=== PATIENT | female | born 1945 | race Caucasian/White ===

== ENCOUNTER 2017-08-04 13:40 | Inpatient (IN) | payer MEDICARE ==
[~2017-08-04] VITALS: Ht 160 cm; Wt 68.2 kg
[2017-08-04] MEDS ORDERED: BUPR150T11 PO (16:45)
[2017-08-04] MEDS ORDERED: ALLO100T PO (16:45)
[2017-08-04] MEDS ORDERED: CALC600T23 PO (16:45)
[2017-08-04] MEDS ORDERED: HYDR25TA PO ×2 (16:45)
[2017-08-04] MEDS ORDERED: [UNRECOGNIZED DRUG - CODE] PO (16:45)
[2017-08-04] MEDS ORDERED: LEVO100T5 PO (16:45)
[2017-08-04] MEDS ORDERED: CLON1TAB3 PO (16:45)
[2017-08-04] MEDS ORDERED: PRAM0.255 PO (16:45)
[2017-08-04] MEDS ORDERED: TRAM50TA PO (16:45)
[2017-08-04] MEDS ORDERED: CHOL10003 PO (16:45)
[2017-08-04] MEDS ORDERED: POTA10TA5 PO (16:45)
[2017-08-04] MEDS ORDERED: MULT-460 PO (16:45)
[2017-08-04] MEDS ORDERED: ACET325T9 PO (16:45)
[2017-08-04] MEDS ORDERED: MAGNESIUM HYDROXIDE 2,400 MG/30 ML ORAL.SUSP. PO PRN (17:00)
[2017-08-04] MEDS ORDERED: METHYL SALICYLATE/MENTHOL TOPICAL OINTMENT 29GM TUBE. TP PRN (17:00)
[2017-08-04] MEDS ORDERED: MAG HYDROX/AL HYDROX/SIMETH 30 ML ORAL.SUSP PO PRN (17:00)
[2017-08-04 17:31] LABS: BASO % 0 % (0-3); EOS % 1 % (0-3); HEMATOCRIT 28.8 % (36.0-47.0); HEMOGLOBIN 9.7 g/dL (12.0-15.5); LYMPH # 1.2 x10^3/uL (1.0-4.8); LYMPH % 13 % (24-48); MEAN CORPUSCULAR HEMOGLOBIN 29 pg (25-35); MEAN CORPUSCULAR HGB CONC 34 g/dL (31-37); MEAN CORPUSCULAR VOLUME 87 fL (79-100); MONO # 0.8 x10^3/uL (0.0-1.1); MONO % 9 % (0-9); NEUT # 6.8 x10^3uL (1.8-7.7); NEUT % 77 % (31-73); PLATELET COUNT 337 x10^3/uL (140-400); WHITE BLOOD COUNT 8.9 x10^3/uL (4.0-11.0)
[2017-08-04 17:34] VITALS: BP 130/78
[2017-08-04 17:57] LABS: ALBUMIN 3.2 g/dL (3.4-5.0); ALBUMIN/GLOBULIN RATIO 0.8 (1.0-1.7); CALCIUM 8.5 mg/dL (8.5-10.1); CREATININE 0.8 mg/dL (0.6-1.0); GFR 71.1; MAGNESIUM 2.5 mg/dL (1.8-2.4); POTASSIUM 3.5 mmol/L (3.5-5.1); TOTAL BILIRUBIN 0.5 mg/dL (0.2-1.0); TOTAL PROTEIN 7.2 g/dL (6.4-8.2)
--- NOTE | 2017-08-04 18:32 | PDOC ---
Exam Note: Niranjan Note: Please also refer to the separate dictated note~for this date of service dictated separately.~Patient seen individually. Discussed the patient with Nursing staff reviewed the chart.~Reviewed interim history and current functioning. Reviewed vital signs,~Labs/ Radiology~and current medications noted below. Continue current treatment with the changes noted in the dictated addendum note Assessment: Vital Signs: Vital Signs Date Time Temp Pulse Resp B/P (MAP) Pulse Ox O2 Delivery O2 Flow Rate FiO2 08/04/17 17:34 97.8 87 18 130/78 (95) 95 Labs: Laboratory Tests Test 08/04/17 17:10 White Blood Count 8.9 x10^3/uL (4.0-11.0) Red Blood Count 3.30 x10^6/uL (3.50-5.40) L Hemoglobin 9.7 g/dL (12.0-15.5) L Hematocrit 28.8 % (36.0-47.0) L Mean Corpuscular Volume 87 fL (79-100) Mean Corpuscular Hemoglobin 29 pg (25-35) Mean Corpuscular Hemoglobin Concent 34 g/dL (31-37) Red Cell Distribution Width 14.0 % (11.5-14.5) Platelet Count 337 x10^3/uL (140-400) Neutrophils (%) (Auto) 77 % (31-73) H Lymphocytes (%) (Auto) 13 % (24-48) L Monocytes (%) (Auto) 9 % (0-9) Eosinophils (%) (Auto) 1 % (0-3) Basophils (%) (Auto) 0 % (0-3) Neutrophils # (Auto) 6.8 x10^3uL (1.8-7.7) Lymphocytes # (Auto) 1.2 x10^3/uL (1.0-4.8) Monocytes # (Auto) 0.8 x10^3/uL (0.0-1.1) Eosinophils # (Auto) 0.0 x10^3/uL (0.0-0.7) Basophils # (Auto) 0.0 x10^3/uL (0.0-0.2) Sodium Level 139 mmol/L (136-145) Potassium Level 3.5 mmol/L (3.5-5.1) Chloride Level 102 mmol/L (98-107) Carbon Dioxide Level 25 mmol/L (21-32) Anion Gap 12 (6-14) Blood Urea Nitrogen 12 mg/dL (7-20) Creatinine 0.8 mg/dL (0.6-1.0) Estimated GFR (Cockcroft-Gault) 71.1 BUN/Creatinine Ratio 15 (6-20) Glucose Level 118 mg/dL (70-99) H Calcium Level 8.5 mg/dL (8.5-10.1) Magnesium Level 2.5 mg/dL (1.8-2.4) H Total Bilirubin 0.5 mg/dL (0.2-1.0) Aspartate Amino Transferase (AST) 40 U/L (15-37) H Alanine Aminotransferase (ALT) 36 U/L (14-59) Alkaline Phosphatase 61 U/L (46-116) Total Protein 7.2 g/dL (6.4-8.2) Albumin 3.2 g/dL (3.4-5.0) L Albumin/Globulin Ratio 0.8 (1.0-1.7) L Current Medications: Meds: Current Medications Multi-Ingredient Ointment (Analgesic [place]) 1 alissa PRN QID PRN TP MUSCLE PAIN; Start 08/04/17 at 17:00 Al Hydroxide/Mg Hydroxide (Mylanta Plus Xs) 15 ml PRN AFTMEALHC PRN PO DYSPEPSIA; Start 08/04/17 at 17:00 Magnesium Hydroxide (Milk Of Magnesia) 2,400 mg PRN QHS PRN PO CONSTIPATION; Start 08/04/17 at 17:00 Nicotine (Nicoderm Cq 14mg) 1 patch DAILY TD ; Start 08/05/17 at 09:00; Stop at 09:00; Status DC Acetaminophen (Tylenol) 650 mg PRN Q4HRS PRN PO PAIN / TEMP; Start 08/04/17 at 17:00 Allopurinol (Zyloprim) 100 mg DAILY PO ; Start 08/05/17 at 09:00 Bupropion HCl (Wellbutrin Sr) 150 mg BID92 PO ; Start 08/05/17 at 09:00 Vitamin D (Vitamin D3) 2,000 unit DAILY PO ; Start 08/05/17 at 09:00 Clonazepam (KlonoPIN) 1 mg PRN TID PRN PO ANXIETY / AGITATION; Start 08/04/17 at 17:00 Hydroxyzine HCl (Atarax) 25 mg DAILY PO ; Start 08/05/17 at 09:00 Hydroxyzine HCl (Atarax) 25 mg PRN Q8HRS PRN PO ANXIETY; Start 08/04/17 at 17: 00 Levothyroxine Sodium (Synthroid) 100 mcg DAILYAC PO ; Start 08/05/17 at 07:30 Pramipexole Dihydrochloride (miraPEX) 0.25 mg DAILY PO ; Start 08/05/17 at 09:00 Tramadol HCl (Ultram) 50 mg PRN Q4HRS PRN PO PAIN; Start 08/04/17 at 17:00 Calcium Carbonate/ Glycine (Oscal) 1,000 mg DAILY PO ; Start 08/05/17 at 09:00 Non-Formulary Medication (Iron Polysaccharides Complex (Novaferrum 50)) 50 mg DAILY PO ; Start 08/05/17 at 09:00; Stop 08/05/17 at 09:00; Status DC Multivitamins/ Calcium (Thera-M Plus) 1 tab DAILY PO ; Start 08/05/17 at 09:00 Potassium Chloride (Klor-Con) 10 meq TID PO ; Start 08/04/17 at 21:00 Active Scripts Active Reported Tramadol Hcl (Tramadol HCl) 50 Mg Tablet 50 Mg PO PRN Q4HRS PRN Mirapex (Pramipexole Di-Hcl) 0.25 Mg Tablet 0.25 Mg PO DAILY Klor-Con 10 (Potassium Chloride) 10 Meq Tablet.er 10 Meq PO TID Multiple Vitamin (Multivitamin With Minerals) 1 Each Tablet 1 Each PO DAILY Levothyroxine Sodium 100 Mcg Tablet 100 Mcg PO DAILYAC Novaferrum 50 (Iron Polysaccharides Complex) 50 Mg Capsule 50 Mg PO DAILY Hydroxyzine Hcl 25 Mg Tablet 25 Mg PO PRN Q8HRS PRN Hydroxyzine Hcl 25 Mg Tablet 25 Mg PO DAILY Clonazepam 1 Mg Tablet 1 Mg PO PRN TID PRN Vitamin D3 (Cholecalciferol (Vitamin D3)) 1,000 Unit Tablet 2,000 Unit PO DAILY Calcium Carbonate 600 Mg Tablet 1,200 Mg PO DAILY Bupropion Hcl Sr (Bupropion Hcl) 150 Mg Tablet.er 150 Mg PO BID92 Allopurinol 100 Mg Tablet 100 Mg PO DAILY Tylenol (Acetaminophen) 325 Mg Tablet 650 Mg PO PRN Q4HRS PRN I have reviewed the current psychotropics carefully including drug interactions. Risk benefit ratio favors no change other than as noted in my dictated progress note. Diagnosis: Problems: (1) Anxiety disorder (2) Impulse control disorder (3) Major depressive disorder, recurrent episode (4) Psychosis, atypical MCKAY SHEIKH MD Aug 04, 2017 18:32
[2017-08-04] MEDS: clonazePAM 1 MG TABLET PO PRN (18:45)
[2017-08-04] MEDS: PRAMIPEXOLE 0.25 MG TABLET. PO SCH (20:27)
[2017-08-04] MEDS: POTASSIUM CHLORIDE 10 MEQ TABLET.ER. PO SCH (20:27)
--- NOTE | 2017-08-04 20:55 | PDOC ---
Exam Note: Niranjan Note: Please also refer to the separate dictated note~for this date of service dictated separately.~Patient seen individually. Discussed the patient with Nursing staff reviewed the chart.~Reviewed interim history and current functioning. Reviewed vital signs,~Labs/ Radiology~and current medications noted below. Continue current treatment with the changes noted in the dictated addendum note Assessment: Vital Signs: Vital Signs Date Time Temp Pulse Resp B/P (MAP) Pulse Ox O2 Delivery O2 Flow Rate FiO2 08/04/17 17:34 97.8 87 18 130/78 (95) 95 Labs: Laboratory Tests Test 08/04/17 17:10 White Blood Count 8.9 x10^3/uL (4.0-11.0) Red Blood Count 3.30 x10^6/uL (3.50-5.40) L Hemoglobin 9.7 g/dL (12.0-15.5) L Hematocrit 28.8 % (36.0-47.0) L Mean Corpuscular Volume 87 fL (79-100) Mean Corpuscular Hemoglobin 29 pg (25-35) Mean Corpuscular Hemoglobin Concent 34 g/dL (31-37) Red Cell Distribution Width 14.0 % (11.5-14.5) Platelet Count 337 x10^3/uL (140-400) Neutrophils (%) (Auto) 77 % (31-73) H Lymphocytes (%) (Auto) 13 % (24-48) L Monocytes (%) (Auto) 9 % (0-9) Eosinophils (%) (Auto) 1 % (0-3) Basophils (%) (Auto) 0 % (0-3) Neutrophils # (Auto) 6.8 x10^3uL (1.8-7.7) Lymphocytes # (Auto) 1.2 x10^3/uL (1.0-4.8) Monocytes # (Auto) 0.8 x10^3/uL (0.0-1.1) Eosinophils # (Auto) 0.0 x10^3/uL (0.0-0.7) Basophils # (Auto) 0.0 x10^3/uL (0.0-0.2) Sodium Level 139 mmol/L (136-145) Potassium Level 3.5 mmol/L (3.5-5.1) Chloride Level 102 mmol/L (98-107) Carbon Dioxide Level 25 mmol/L (21-32) Anion Gap 12 (6-14) Blood Urea Nitrogen 12 mg/dL (7-20) Creatinine 0.8 mg/dL (0.6-1.0) Estimated GFR (Cockcroft-Gault) 71.1 BUN/Creatinine Ratio 15 (6-20) Glucose Level 118 mg/dL (70-99) H Calcium Level 8.5 mg/dL (8.5-10.1) Magnesium Level 2.5 mg/dL (1.8-2.4) H Total Bilirubin 0.5 mg/dL (0.2-1.0) Aspartate Amino Transferase (AST) 40 U/L (15-37) H Alanine Aminotransferase (ALT) 36 U/L (14-59) Alkaline Phosphatase 61 U/L (46-116) Total Protein 7.2 g/dL (6.4-8.2) Albumin 3.2 g/dL (3.4-5.0) L Albumin/Globulin Ratio 0.8 (1.0-1.7) L Current Medications: Meds: Current Medications Multi-Ingredient Ointment (Analgesic [place]) 1 alissa PRN QID PRN TP MUSCLE PAIN; Start 08/04/17 at 17:00 Al Hydroxide/Mg Hydroxide (Mylanta Plus Xs) 15 ml PRN AFTMEALHC PRN PO DYSPEPSIA; Start 08/04/17 at 17:00 Magnesium Hydroxide (Milk Of Magnesia) 2,400 mg PRN QHS PRN PO CONSTIPATION; Start 08/04/17 at 17:00 Nicotine (Nicoderm Cq 14mg) 1 patch DAILY TD ; Start 08/05/17 at 09:00; Stop at 09:00; Status DC Acetaminophen (Tylenol) 650 mg PRN Q4HRS PRN PO PAIN / TEMP; Start 08/04/17 at 17:00 Allopurinol (Zyloprim) 100 mg DAILY PO ; Start 08/05/17 at 09:00 Bupropion HCl (Wellbutrin Sr) 150 mg BID92 PO ; Start 08/05/17 at 09:00 Vitamin D (Vitamin D3) 2,000 unit DAILY PO ; Start 08/05/17 at 09:00 Clonazepam (KlonoPIN) 1 mg PRN TID PRN PO ANXIETY / AGITATION Last administered on 08/04/17at 18:45; Start 08/04/17 at 17:00 Hydroxyzine HCl (Atarax) 25 mg DAILY PO ; Start 08/05/17 at 09:00 Hydroxyzine HCl (Atarax) 25 mg PRN Q8HRS PRN PO ANXIETY; Start 08/04/17 at 17: 00 Levothyroxine Sodium (Synthroid) 100 mcg DAILYAC PO ; Start 08/05/17 at 07:30 Pramipexole Dihydrochloride (miraPEX) 0.25 mg DAILY PO ; Start 08/05/17 at 09:00 ; Stop 08/05/17 at 09:00; Status DC Tramadol HCl (Ultram) 50 mg PRN Q4HRS PRN PO PAIN; Start 08/04/17 at 17:00 Calcium Carbonate/ Glycine (Oscal) 1,000 mg DAILY PO ; Start 08/05/17 at 09:00 Non-Formulary Medication (Iron Polysaccharides Complex (Novaferrum 50)) 50 mg DAILY PO ; Start 08/05/17 at 09:00; Stop 08/05/17 at 09:00; Status DC Multivitamins/ Calcium (Thera-M Plus) 1 tab DAILY PO ; Start 08/05/17 at 09:00 Potassium Chloride (Klor-Con) 10 meq TID PO Last administered on 08/04/17at 20: 27; Start 08/04/17 at 21:00 Pramipexole Dihydrochloride (miraPEX) 0.25 mg HS PO Last administered on at 20:27; Start 08/04/17 at 21:00 Active Scripts Active Reported Tramadol Hcl (Tramadol HCl) 50 Mg Tablet 50 Mg PO PRN Q4HRS PRN Mirapex (Pramipexole Di-Hcl) 0.25 Mg Tablet 0.25 Mg PO DAILY Klor-Con 10 (Potassium Chloride) 10 Meq Tablet.er 10 Meq PO TID Multiple Vitamin (Multivitamin With Minerals) 1 Each Tablet 1 Each PO DAILY Levothyroxine Sodium 100 Mcg Tablet 100 Mcg PO DAILYAC Novaferrum 50 (Iron Polysaccharides Complex) 50 Mg Capsule 50 Mg PO DAILY Hydroxyzine Hcl 25 Mg Tablet 25 Mg PO PRN Q8HRS PRN Hydroxyzine Hcl 25 Mg Tablet 25 Mg PO DAILY Clonazepam 1 Mg Tablet 1 Mg PO PRN TID PRN Vitamin D3 (Cholecalciferol (Vitamin D3)) 1,000 Unit Tablet 2,000 Unit PO DAILY Calcium Carbonate 600 Mg Tablet 1,200 Mg PO DAILY Bupropion Hcl Sr (Bupropion Hcl) 150 Mg Tablet.er 150 Mg PO BID92 Allopurinol 100 Mg Tablet 100 Mg PO DAILY Tylenol (Acetaminophen) 325 Mg Tablet 650 Mg PO PRN Q4HRS PRN I have reviewed the current psychotropics carefully including drug interactions. Risk benefit ratio favors no change other than as noted in my dictated progress note. Diagnosis: Problems: (1) Anxiety disorder (2) Impulse control disorder (3) Psychosis, atypical (4) Major depressive disorder, recurrent episode MCKAY SHEIKH MD Aug 04, 2017 20:55
[2017-08-04] MEDS: traMADol 50 MG TABLET PO PRN (21:41)
[2017-08-04] MEDS: ACETAMINOPHEN 325 MG TABLET PO PRN (21:41)
--- NOTE | 2017-08-05 06:19 | EKG ---
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
[2017-08-05 06:30] VITALS: BP 125/73
[2017-08-05] MEDS ORDERED: LEVOTHYROXINE 100 MCG TABLET PO SCH (07:30)
--- NOTE | 2017-08-05 07:44 | EKG ---
[address] [address] Test Date: 2017-08-05 Test Time: 06:10:44 Pat Name: REBEKAH POWERS Department: Room: 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
[2017-08-05 08:08] LABS: T3 TOTAL 92 ng/dL (71-180); THYROXINE 9.6 ug/dL (4.5-12.0)
[2017-08-05] MEDS ORDERED: NICOTINE 14MG PATCH. TD SCH (09:00)
[2017-08-05] MEDS ORDERED: PRAMIPEXOLE 0.25 MG TABLET. PO SCH (09:00)
[2017-08-05] MEDS ORDERED: POLYSACCHARIDE IRON COMPLEX PO SCH (09:00)
--- NOTE | 2017-08-05 09:31 | HP ---
ADMIT DATE: 08/04/2017 This is a late entry and covers elements not covered in my initial note 08/04/2017. The patient was seen individually evening of 08/04/2017. Discussed with nursing staff, reviewed the chart, and I previously discussed with nursing staff on 2 or 3 occasions to gather historical information prompting patient's referral for inpatient psychiatry from [facility] where she was on the medical/surgical floor and stabilized, but continued to be confused, delirious, psychotic, status post back surgery at [facility]. I have been called late at night of 08/03/2017 with initial referral from [facility], but we determined she should stay overnight for further medical stabilization there before we would reassess the next morning which we did and then agreed to her transfer. IDENTIFYING DATA: The patient is a 71-year-old female referred to us from [facility] by Dr. Guerra from [facility] on account of worsening confusion, slurred speech, intermittent hallucinations, seeing ants in the air grabbing at them, confusion, being oriented just to name and date of only. She had been talking to the pillows, crying, attempting to elope from the facility, agitated. She initially presented to the ER at [facility], was delirious, Xanax given, admitted to the medical surgical floor, medically stabilized, nothing found to account for her symptoms and referred for inpatient psychiatric stabilization, coordinated by her adult children, who are her DPOA including Mohit Walls, her son, telephone [phone]. CHIEF COMPLAINT: "I had prolapsed disks in the back and was having leg pain." Dr. Martin did the surgery. "I don't know why my children thought I should come here." HISTORY OF PRESENT ILLNESS: The patient recently had a back surgery at [facility] and following that was returned home. She was undergoing rehabilitation, then appeared to become extremely delirious, psychotic, disorganized and was taken to the ER at [facility] as noted. These symptoms have persisted while there with worsening confusion, nothing medically to account for it resulting in this referral because of behaviors deemed dangerous, out of control, unmanageable at home by her family. No clear history of bipolar disorder, suicidal, or homicidal ideation. PAST PSYCHIATRIC HISTORY: As above, though she does not have any premorbid psychiatric conditions I have been made aware of. No alcohol or drug abuse history. The patient reportedly had an assessment at [facility] by the psychologist, who was told that she was unable to make decisions for herself and DPOA was initiated to help make decisions for her. PAST MEDICAL HISTORY: Status post back surgery 07/31/2017 for T4, history of left knee replacement, gout, depression, hypothyroidism, restless leg syndrome, anxiety. DIET: Regular. ACCU-CHEKS: None. Ambulates up ____. CODE STATUS: Full code. DRUG ALLERGIES: Negative. FAMILY HISTORY: Noncontributory. SOCIAL HISTORY: No alcohol, drug abuse, physical or sexual abuse history is noted. Not known to be a perpetrator. 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 Prior to the back surgery, she was driving on her own, taking care of herself at home, cooking, cleaning according to her. MENTAL STATUS EXAMINATION: The patient was seen individually evening of 08/04/2017. She is oriented to herself and situation, quite anxious, restless, distress from her back pain. At times, she seems quite disoriented, at other times less so. She had midst of the hallucinations, delusions, prompting admission. Denies having them currently as I assessed her. Speech is coherent, abstraction fair, computation impaired, language function intact, attention span short. Mood and affect remain somewhat anxious, labile. LABORATORY DATA: Reviewed. Reaction to hospitalization, the patient reluctantly accepting of this weakness, patient's confusion, psychosis. REVIEW OF SYSTEMS: Positive for back pain, impaired ambulation. No CV, , pulmonary, eye system symptoms on review. IMPRESSION: Delirium, unspecified; history of major depressive disorder with psychotic features; anxiety disorder, unspecified; impulse control disorder, unspecified. Rest as above. PLAN: Admit to Geropsychiatry Unit at [facility]. I will see the patient daily individually from a psychiatric standpoint. Medical followup per Dr. Blackwood/Dr Figueroa. Continue current psychotropics including Wellbutrin-SR 150 mg twice a day, Klonopin, which she takes 1 mg 3 times a day, but we will have to gradually reduce this since this could be contributing further to some of her delirium. She is also on hydroxyzine 25 mg q.8 hours p.r.n. anxiety and additionally takes Synthroid and Mirapex, the latter for restless leg and allopurinol for gout. MCKAY SHEIKH MD DR: CAMI/nery JOB#: [id number] / [id number]
[2017-08-05] MEDS: CHOLECALCIFEROL (VITAMIN D3) 1,000 UNIT TABLET PO SCH (10:05)
[2017-08-05] MEDS: CALCIUM CARBONATE 500 MG TABLET PO SCH (10:05)
[2017-08-05] MEDS: hydrOXYzine HCL 25 MG TABLET PO SCH (10:05)
[2017-08-05] MEDS: POTASSIUM CHLORIDE 10 MEQ TABLET.ER. PO SCH ×3 (10:05→20:56)
[2017-08-05] MEDS: MULTIVITAMIN with MINERAL TABLET. PO SCH (10:05)
[2017-08-05] MEDS: buPROPion SR 150 MG TABLET.SA PO SCH ×3 (10:06→14:08)
[2017-08-05] MEDS: ALLOPURINOL 100 MG TABLET. PO SCH ×2 (10:06→10:32)
[2017-08-05 11:02] LABS: THYROID STIM HORMONE (TSH) 0.361 uIU/mL (0.358-3.740)
[2017-08-05] MEDS: traMADol 50 MG TABLET PO PRN ×2 (16:12→21:06)
[2017-08-05 16:25] LABS: BACTERIA,URINE FEW /HPF (0-FEW); BILIRUBIN,URINE NEG (NEG); CLARITY,URINE CLEAR; COLOR,URINE STRAW; GLUCOSE,URINE NEG (NEG); NITRITE,URINE NEG (NEG); RBC,URINE OCC /HPF (0-2); SQUAMOUS EPITHELIAL CELL,UR MOD /LPF; UROBILINOGEN,URINE 0.2 mg/dL (0.2 mg/dL)
[2017-08-05 16:30] VITALS: BP 161/77
[2017-08-05] MEDS ORDERED: ALEN70TA3 PO (18:22)
--- NOTE | 2017-08-05 19:49 | PDOC ---
Exam Note: Niranjan Note: Please also refer to the separate dictated note~for this date of service dictated separately.~Patient seen individually. Discussed the patient with Nursing staff reviewed the chart.~Reviewed interim history and current functioning. Reviewed vital signs,~Labs/ Radiology~and current medications noted below. Continue current treatment with the changes noted in the dictated addendum note Assessment: Vital Signs: Vital Signs Date Time Temp Pulse Resp B/P (MAP) Pulse Ox O2 Delivery O2 Flow Rate FiO2 08/05/17 17:00 20 08/05/17 16:30 98.4 86 161/77 (105) 99 Room Air I&O Intake and Output 08/05/17 07:00 Intake Total 60 ml Balance 60 ml Intake Oral 60 ml # Bowel Movements 1 Labs: Laboratory Tests Test 08/05/17 15:50 Urine Collection Type Unknown Urine Color Straw Urine Clarity Clear Urine pH 6.0 Urine Specific [place] <=1.005 Urine Protein Neg (NEG-TRACE) Urine Glucose (UA) Neg mg/dL (NEG) Urine Ketones (Stick) Neg mg/dL (NEG) Urine Blood Small (NEG) Urine Nitrite Neg (NEG) Urine Bilirubin Neg (NEG) Urine Urobilinogen Dipstick 0.2 mg/dL (0.2 mg/dL) Urine Leukocyte Esterase Trace (NEG) Urine RBC Occ /HPF (0-2) Urine WBC 1-4 /HPF (0-4) Urine Squamous Epithelial Cells Mod /LPF Urine Bacteria Few /HPF (0-FEW) Urine Mucus Slight /LPF Current Medications: Meds: Current Medications Multi-Ingredient Ointment (Analgesic [place]) 1 alissa PRN QID PRN TP MUSCLE PAIN; Start 08/04/17 at 17:00 Al Hydroxide/Mg Hydroxide (Mylanta Plus Xs) 15 ml PRN AFTMEALHC PRN PO DYSPEPSIA; Start 08/04/17 at 17:00 Magnesium Hydroxide (Milk Of Magnesia) 2,400 mg PRN QHS PRN PO CONSTIPATION; Start 08/04/17 at 17:00 Nicotine (Nicoderm Cq 14mg) 1 patch DAILY TD ; Start 08/05/17 at 09:00; Stop at 09:00; Status DC Acetaminophen (Tylenol) 650 mg PRN Q4HRS PRN PO PAIN / TEMP Last administered on 08/04/17at 21:41; Start 08/04/17 at 17:00 Allopurinol (Zyloprim) 100 mg DAILY PO ; Start 08/05/17 at 09:00 Bupropion HCl (Wellbutrin Sr) 150 mg BID92 PO Last administered on 08/05/17at 14 :08; Start 08/05/17 at 09:00 Vitamin D (Vitamin D3) 2,000 unit DAILY PO Last administered on 08/05/17at 10:05 ; Start 08/05/17 at 09:00 Clonazepam (KlonoPIN) 1 mg PRN TID PRN PO ANXIETY / AGITATION Last administered on 08/04/17at 18:45; Start 08/04/17 at 17:00 Hydroxyzine HCl (Atarax) 25 mg DAILY PO Last administered on 08/05/17at 10:05; Start 08/05/17 at 09:00 Hydroxyzine HCl (Atarax) 25 mg PRN Q8HRS PRN PO ANXIETY; Start 08/04/17 at 17: 00 Levothyroxine Sodium (Synthroid) 100 mcg DAILYAC PO Last administered on at 10:05; Start 08/05/17 at 07:30; Stop 08/05/17 at 13:56; Status DC Pramipexole Dihydrochloride (miraPEX) 0.25 mg DAILY PO ; Start 08/05/17 at 09:00 ; Stop 08/05/17 at 09:00; Status DC Tramadol HCl (Ultram) 50 mg PRN Q4HRS PRN PO PAIN Last administered on at 16:12; Start 08/04/17 at 17:00 Calcium Carbonate/ Glycine (Oscal) 1,000 mg DAILY PO Last administered on at 10:05; Start 08/05/17 at 09:00 Non-Formulary Medication (Iron Polysaccharides Complex (Novaferrum 50)) 50 mg DAILY PO ; Start 08/05/17 at 09:00; Stop 08/05/17 at 09:00; Status DC Multivitamins/ Calcium (Thera-M Plus) 1 tab DAILY PO Last administered on at 10:05; Start 08/05/17 at 09:00 Potassium Chloride (Klor-Con) 10 meq TID PO Last administered on 08/05/17at 14: 07; Start 08/04/17 at 21:00 Pramipexole Dihydrochloride (miraPEX) 0.25 mg HS PO Last administered on at 20:27; Start 08/04/17 at 21:00 Levothyroxine Sodium (Synthroid) 100 mcg DAILY06 PO ; Start 08/06/17 at 06:00 Melatonin 3 mg PRN QHS PRN PO INSOMNIA; Start 08/05/17 at 18:15 Non-Formulary Medication (Alendronate Sodium (Fosamax)) 1 tab WEEKLY PO ; Start 08/12/17 at 09:00; Status UNV Active Scripts Active Reported Fosamax (Alendronate Sodium) 70 Mg Tablet 1 Tab PO WEEKLY Tramadol Hcl (Tramadol HCl) 50 Mg Tablet 50 Mg PO PRN Q4HRS PRN Mirapex (Pramipexole Di-Hcl) 0.25 Mg Tablet 0.25 Mg PO DAILY Klor-Con 10 (Potassium Chloride) 10 Meq Tablet.er 10 Meq PO TID Multiple Vitamin (Multivitamin With Minerals) 1 Each Tablet 1 Each PO DAILY Levothyroxine Sodium 100 Mcg Tablet 100 Mcg PO DAILYAC Novaferrum 50 (Iron Polysaccharides Complex) 50 Mg Capsule 50 Mg PO DAILY Hydroxyzine Hcl 25 Mg Tablet 25 Mg PO PRN Q8HRS PRN Hydroxyzine Hcl 25 Mg Tablet 25 Mg PO DAILY Clonazepam 1 Mg Tablet 1 Mg PO PRN TID PRN Vitamin D3 (Cholecalciferol (Vitamin D3)) 1,000 Unit Tablet 2,000 Unit PO DAILY Calcium Carbonate 600 Mg Tablet 1,200 Mg PO DAILY Bupropion Hcl Sr (Bupropion Hcl) 150 Mg Tablet.er 150 Mg PO BID92 Allopurinol 100 Mg Tablet 100 Mg PO DAILY Tylenol (Acetaminophen) 325 Mg Tablet 650 Mg PO PRN Q4HRS PRN I have reviewed the current psychotropics carefully including drug interactions. Risk benefit ratio favors no change other than as noted in my dictated progress note. Diagnosis: Problems: (1) Anxiety disorder (2) Impulse control disorder (3) Psychosis, atypical (4) Major depressive disorder, recurrent episode MCKAY SHEIKH MD Aug 05, 2017 19:49
[2017-08-05] MEDS: PRAMIPEXOLE 0.25 MG TABLET. PO SCH (20:57)
[2017-08-06 03:10] LABS: HEMOGLOBIN A1C 5.7 % (4.8-5.6)
[2017-08-06] MEDS: LEVOTHYROXINE 100 MCG TABLET PO SCH (05:59)
[2017-08-06 06:22] VITALS: BP 144/82
[2017-08-06] MEDS: clonazePAM 1 MG TABLET PO PRN (06:29)
[2017-08-06] MEDS: CALCIUM CARBONATE 500 MG TABLET PO SCH (07:54)
[2017-08-06] MEDS: hydrOXYzine HCL 25 MG TABLET PO SCH (07:54)
[2017-08-06] MEDS: MULTIVITAMIN with MINERAL TABLET. PO SCH (07:54)
[2017-08-06] MEDS: CHOLECALCIFEROL (VITAMIN D3) 1,000 UNIT TABLET PO SCH (07:54)
[2017-08-06] MEDS: ALLOPURINOL 100 MG TABLET. PO SCH (07:54)
[2017-08-06] MEDS: buPROPion SR 150 MG TABLET.SA PO SCH ×2 (07:54→14:00)
[2017-08-06] MEDS: POTASSIUM CHLORIDE 10 MEQ TABLET.ER. PO SCH ×3 (07:55→20:12)
--- NOTE | 2017-08-06 15:47 | CONS ---
DATE OF CONSULTATION: 08/05/2017 REASON FOR CONSULTATION: Medical management. HISTORY OF PRESENT ILLNESS: This is a 71-year-old female patient who was admitted with the account of paranoia, anxiety, hallucination, ____, all this started about after she underwent laminectomy on Monday at [facility] and was admitted for inpatient psychiatric stabilization. PAST MEDICAL HISTORY: Significant for hypothyroidism, gout, and osteoporosis. PAST SURGICAL HISTORY: Significant for T4 back surgery, left knee replacement. ALLERGIES: She has no known drug allergies. MEDICATIONS: She is currently on following medications: She is on iron polysaccharide or NovaFerrum 50 mg daily, tramadol 50 mg every 4 hours, Tylenol 650 every 4 hours, clonazepam 1 mg 3 times a day, Wellbutrin 150 mg twice a day, hydroxyzine 25 mg daily, hydroxyzine 25 mg every 8 hours as needed, Mirapex 0.25 mg daily, calcium carbonate 1200 mg daily, potassium chloride 10 mEq 3 times a day, levothyroxine sodium 100 mcg once a day, vitamin D3 2000 international units p.o. daily, multivitamin 1 tablet once a day, allopurinol 100 mg daily. FAMILY HISTORY: Unremarkable. SOCIAL HISTORY: She is , has a son and a daughter. She denied smoking and does not drink alcohol or use any recreational drugs. REVIEW OF SYSTEMS: As per history of present illness. PHYSICAL EXAMINATION GENERAL: When I examined her, she looked well and was clearly in no apparent distress. She was pale. No jaundice, cyanosis, or thyromegaly. No jugular venous distension. No limb edema. VITAL SIGNS: Her heart rate was 85, blood pressure was 125/73, temperature was 98.1, respiratory rate was 16, and oxygen saturation was 97%. HEAD, EYES, EARS, NOSE AND THROAT: Showed normocephalic, atraumatic. NECK: Supple. HEART: Showed normal first and second heart sounds with no gallop, rub or murmur. CHEST: Clear to auscultation. No crepitation or rhonchi. ABDOMEN: Distended, soft, nontender. No guarding or rigidity. No organomegaly. Hernial orifice intact and bowel sounds normal. NEUROLOGIC: She is awake, alert, seems to have pressured speech and flight of ideas, otherwise, all cranial nerves intact. EXTREMITIES: She moves extremities without difficulty. She ambulates with a walker. Surgical wound on her back is seemed to be healing nicely with no redness, tenderness, or discharge. LABORATORY DATA: Showed serum sodium 139, potassium 3.5, chloride 102, bicarbonate 25, anion gap of 12, BUN 12, creatinine 0.8, estimated GFR was 71 mL. Her glucose 118, calcium was 8.5, magnesium 2.5. Serum iron is low at 12, TIBC was 228 and percent saturation was 5. Total bilirubin, AST, ALT, alkaline phosphatase were normal. Total protein 7.2, albumin 3.2. TSH was 0.361, T4 9.6, total T3 was 92. Her white cell count was 8900, hemoglobin 10, hematocrit 30, MCV 87, and platelet count of 337,000. Her RPR is nonreactive. IMPRESSION AND PLAN: In summary, this is a 71-year-old female patient who was referred for inpatient psychiatric stabilization from [facility] where she was in the medical surgical floor and stabilized, but continued to be confused, delirious, psychotic, status post back surgery at [facility]. From medical point of view, she seemed to be stable. She has hypothyroidism and gout. All her lab work so far seems to be stable. She said she has vitamin B12 deficiency. The results are still pending, so I will review that and make any necessary adjustment. Thank you, Dr. Duron for allowing me to participate in the care of this patient. MAYTE FULTON MD DR: REBA/nery JOB#: [id number] / [id number]
[2017-08-06] MEDS: traMADol 50 MG TABLET PO PRN ×2 (16:59→22:14)
[2017-08-06 17:08] VITALS: BP 141/80
--- NOTE | 2017-08-06 20:08 | PN ---
DATE: 08/05/2017 PSYCHIATRIC PROGRESS NOTE This note covers elements not covered in my initial note of 08/05/2017. SUBJECTIVE: I met with the patient in the evening of 08/05/2017. Nursing staff shared that further information from prior to admission indicated the patient has been on Adderall 20 mg twice a day for the past 4 years for ADHD and Effexor ER to 225 mg a day, which she has been taking for about 10 years with Fosamax weekly. She has been irritable, labile at times. I had a very lengthy conversation with the patient's daughter, Mee, to gather background historical information. Mee stated the patient has a long psychiatric history of erratic mood swings with periods of elation, racing thoughts, spending excessively followed by periods of getting extremely depressed and at other times selling those things in rapid succession. She has been diagnosed with borderline personality in the past, possibly with bipolar disorder and has been at the [facility] and has seen other psychologists and been on multiple psychotropics over the years. She has had 3 marriages, lost a baby in 1981. Possible history of bipolar disorder on the mother's side of the family, attempted suicide on several occasions and noted to be lying manipulative. REVIEW OF SYSTEMS: Back pain. No CV, , pulmonary, eye, ENT system symptoms on review. MENTAL STATUS EXAM: Reasonably oriented. Speech is coherent, somewhat anxious, pressured at times. Abstraction fair, computation impaired, language function intact, attention span short. Mood and affect remain somewhat anxious, labile. LABORATORY DATA: Reviewed. IMPRESSION: Delirium due to general medical condition, probable bipolar 1 disorder, mixed history of borderline personality disorder; anxiety disorder, unspecified. Rest unchanged. PLAN: The patient has had significant insomnia. We will add melatonin 3 mg at bedtime. We will not restart Adderall or Effexor for now, continue Wellbutrin-SR 150 mg twice a day, Atarax scheduled and p.r.n., Klonopin 1 mg 3 times a day. [facility] from the [facility]. Start her on PT and OT. Have a psychological testing by Dr. Marin to clarify diagnosis. Consider specific treatment of bipolar disorder if this is evident on psychological testing. Start melatonin 3 mg at bedtime. MAN Dheeraj SHEIKH MD DR: Isaias JOB#: [id number] / [id number]
[2017-08-06] MEDS: PRAMIPEXOLE 0.25 MG TABLET. PO SCH (20:12)
[2017-08-06] MEDS: ACETAMINOPHEN 325 MG TABLET PO PRN (22:14)
--- NOTE | 2017-08-06 22:19 | PDOC ---
Exam Note: Niranjan Note: Please also refer to the separate dictated note~for this date of service dictated separately.~Patient seen individually. Discussed the patient with Nursing staff reviewed the chart.~Reviewed interim history and current functioning. Reviewed vital signs,~Labs/ Radiology~and current medications noted below. Continue current treatment with the changes noted in the dictated addendum note Assessment: Vital Signs: Vital Signs Date Time Temp Pulse Resp B/P (MAP) Pulse Ox O2 Delivery O2 Flow Rate FiO2 08/06/17 22:14 99 08/06/17 17:08 98.6 89 16 141/80 (100) 08/05/17 16:30 Room Air I&O Intake and Output 08/06/17 07:00 Intake Total 940 ml Balance 940 ml Intake Oral 940 ml Current Medications: Meds: Current Medications Multi-Ingredient Ointment (Analgesic [place]) 1 alissa PRN QID PRN TP MUSCLE PAIN; Start 08/04/17 at 17:00 Al Hydroxide/Mg Hydroxide (Mylanta Plus Xs) 15 ml PRN AFTMEALHC PRN PO DYSPEPSIA; Start 08/04/17 at 17:00 Magnesium Hydroxide (Milk Of Magnesia) 2,400 mg PRN QHS PRN PO CONSTIPATION; Start 08/04/17 at 17:00 Nicotine (Nicoderm Cq 14mg) 1 patch DAILY TD ; Start 08/05/17 at 09:00; Stop at 09:00; Status DC Acetaminophen (Tylenol) 650 mg PRN Q4HRS PRN PO PAIN / TEMP Last administered on 08/06/17at 22:14; Start 08/04/17 at 17:00 Allopurinol (Zyloprim) 100 mg DAILY PO Last administered on 08/06/17at 07:54; Start 08/05/17 at 09:00 Bupropion HCl (Wellbutrin Sr) 150 mg BID92 PO Last administered on 08/06/17at 14 :00; Start 08/05/17 at 09:00 Vitamin D (Vitamin D3) 2,000 unit DAILY PO Last administered on 08/06/17at 07:54 ; Start 08/05/17 at 09:00 Clonazepam (KlonoPIN) 1 mg PRN TID PRN PO ANXIETY / AGITATION Last administered on 08/06/17at 06:29; Start 08/04/17 at 17:00 Hydroxyzine HCl (Atarax) 25 mg DAILY PO Last administered on 08/06/17at 07:54; Start 08/05/17 at 09:00 Hydroxyzine HCl (Atarax) 25 mg PRN Q8HRS PRN PO ANXIETY; Start 08/04/17 at 17: 00 Levothyroxine Sodium (Synthroid) 100 mcg DAILYAC PO Last administered on at 10:05; Start 08/05/17 at 07:30; Stop 08/05/17 at 13:56; Status DC Pramipexole Dihydrochloride (miraPEX) 0.25 mg DAILY PO ; Start 08/05/17 at 09:00 ; Stop 08/05/17 at 09:00; Status DC Tramadol HCl (Ultram) 50 mg PRN Q4HRS PRN PO PAIN Last administered on at 22:14; Start 08/04/17 at 17:00 Calcium Carbonate/ Glycine (Oscal) 1,000 mg DAILY PO Last administered on at 07:54; Start 08/05/17 at 09:00 Non-Formulary Medication (Iron Polysaccharides Complex (Novaferrum 50)) 50 mg DAILY PO ; Start 08/05/17 at 09:00; Stop 08/05/17 at 09:00; Status DC Multivitamins/ Calcium (Thera-M Plus) 1 tab DAILY PO Last administered on at 07:54; Start 08/05/17 at 09:00 Potassium Chloride (Klor-Con) 10 meq TID PO Last administered on 08/06/17at 20: 12; Start 08/04/17 at 21:00 Pramipexole Dihydrochloride (miraPEX) 0.25 mg HS PO Last administered on at 20:12; Start 08/04/17 at 21:00 Levothyroxine Sodium (Synthroid) 100 mcg DAILY06 PO Last administered on at 05:59; Start 08/06/17 at 06:00 Melatonin 3 mg PRN QHS PRN PO INSOMNIA; Start 08/05/17 at 18:15 Non-Formulary Medication (Alendronate Sodium (Fosamax)) 1 tab WEEKLY PO ; Start 08/12/17 at 09:00; Status UNV Alendronate Sodium (Fosamax) 35 mg WEEKLYAC PO ; Start 08/07/17 at 07:00; Status Cancel Alendronate Sodium (Fosamax) 70 mg WEEKLYAC PO ; Start 08/07/17 at 07:00 Active Scripts Active Reported Fosamax (Alendronate Sodium) 70 Mg Tablet 1 Tab PO WEEKLY Tramadol Hcl (Tramadol HCl) 50 Mg Tablet 50 Mg PO PRN Q4HRS PRN Mirapex (Pramipexole Di-Hcl) 0.25 Mg Tablet 0.25 Mg PO DAILY Klor-Con 10 (Potassium Chloride) 10 Meq Tablet.er 10 Meq PO TID Multiple Vitamin (Multivitamin With Minerals) 1 Each Tablet 1 Each PO DAILY Levothyroxine Sodium 100 Mcg Tablet 100 Mcg PO DAILYAC Novaferrum 50 (Iron Polysaccharides Complex) 50 Mg Capsule 50 Mg PO DAILY Hydroxyzine Hcl 25 Mg Tablet 25 Mg PO PRN Q8HRS PRN Hydroxyzine Hcl 25 Mg Tablet 25 Mg PO DAILY Clonazepam 1 Mg Tablet 1 Mg PO PRN TID PRN Vitamin D3 (Cholecalciferol (Vitamin D3)) 1,000 Unit Tablet 2,000 Unit PO DAILY Calcium Carbonate 600 Mg Tablet 1,200 Mg PO DAILY Bupropion Hcl Sr (Bupropion Hcl) 150 Mg Tablet.er 150 Mg PO BID92 Allopurinol 100 Mg Tablet 100 Mg PO DAILY Tylenol (Acetaminophen) 325 Mg Tablet 650 Mg PO PRN Q4HRS PRN I have reviewed the current psychotropics carefully including drug interactions. Risk benefit ratio favors no change other than as noted in my dictated progress note. Diagnosis: Problems: (1) Anxiety disorder (2) Impulse control disorder (3) Psychosis, atypical (4) Major depressive disorder, recurrent episode MCKAY SHEIKH MD Aug 06, 2017 22:19
[2017-08-07] MEDS: traMADol 50 MG TABLET PO PRN ×3 (04:17→20:24)
[2017-08-07] MEDS: LEVOTHYROXINE 100 MCG TABLET PO SCH (05:40)
[2017-08-07 06:16] VITALS: BP 118/70
[2017-08-07] MEDS ORDERED: ALENDRONATE SODIUM 35 MG TABLET PO SCH ×2 (07:00)
[2017-08-07] MEDS: CALCIUM CARBONATE 500 MG TABLET PO SCH (08:43)
[2017-08-07] MEDS: buPROPion SR 150 MG TABLET.SA PO SCH ×2 (08:43→14:18)
[2017-08-07] MEDS: MULTIVITAMIN with MINERAL TABLET. PO SCH (08:43)
[2017-08-07] MEDS: POTASSIUM CHLORIDE 10 MEQ TABLET.ER. PO SCH ×3 (08:43→20:21)
[2017-08-07] MEDS: hydrOXYzine HCL 25 MG TABLET PO SCH (08:43)
[2017-08-07] MEDS: CHOLECALCIFEROL (VITAMIN D3) 1,000 UNIT TABLET PO SCH (08:43)
[2017-08-07] MEDS: ALLOPURINOL 100 MG TABLET. PO SCH (08:43)
[2017-08-07] MEDS: ACETAMINOPHEN 325 MG TABLET PO PRN ×2 (10:41→22:14)
[2017-08-07 15:58] VITALS: BP 157/82
[2017-08-07] MEDS: PRAMIPEXOLE 0.25 MG TABLET. PO SCH (20:21)
--- NOTE | 2017-08-07 21:17 | PDOC ---
Exam Note: Niranjan Note: Please also refer to the separate dictated note~for this date of service dictated separately.~Patient seen individually. Discussed the patient with Nursing staff reviewed the chart.~Reviewed interim history and current functioning. Reviewed vital signs,~Labs/ Radiology~and current medications noted below. Continue current treatment with the changes noted in the dictated addendum note Assessment: Vital Signs: Vital Signs Date Time Temp Pulse Resp B/P (MAP) Pulse Ox O2 Delivery O2 Flow Rate FiO2 08/07/17 20:24 18 Room Air 08/07/17 16:24 99 08/07/17 15:58 98.6 85 157/82 (107) I&O Intake and Output 08/07/17 07:00 Intake Total 1080 ml Balance 1080 ml Intake Oral 1080 ml # Voids 2 # Bowel Movements 1 Current Medications: Meds: Current Medications Multi-Ingredient Ointment (Analgesic [place]) 1 alissa PRN QID PRN TP MUSCLE PAIN; Start 08/04/17 at 17:00 Al Hydroxide/Mg Hydroxide (Mylanta Plus Xs) 15 ml PRN AFTMEALHC PRN PO DYSPEPSIA; Start 08/04/17 at 17:00 Magnesium Hydroxide (Milk Of Magnesia) 2,400 mg PRN QHS PRN PO CONSTIPATION; Start 08/04/17 at 17:00 Nicotine (Nicoderm Cq 14mg) 1 patch DAILY TD ; Start 08/05/17 at 09:00; Stop at 09:00; Status DC Acetaminophen (Tylenol) 650 mg PRN Q4HRS PRN PO PAIN / TEMP Last administered on 08/07/17at 10:41; Start 08/04/17 at 17:00 Allopurinol (Zyloprim) 100 mg DAILY PO Last administered on 08/07/17at 08:43; Start 08/05/17 at 09:00 Bupropion HCl (Wellbutrin Sr) 150 mg BID92 PO Last administered on 08/07/17at 14 :18; Start 08/05/17 at 09:00 Vitamin D (Vitamin D3) 2,000 unit DAILY PO Last administered on 08/07/17at 08:43 ; Start 08/05/17 at 09:00 Clonazepam (KlonoPIN) 1 mg PRN TID PRN PO ANXIETY / AGITATION Last administered on 08/06/17at 06:29; Start 08/04/17 at 17:00 Hydroxyzine HCl (Atarax) 25 mg DAILY PO Last administered on 08/07/17 08:43; Start 08/05/17 at 09:00 Hydroxyzine HCl (Atarax) 25 mg PRN Q8HRS PRN PO ANXIETY; Start 08/04/17 at 17: 00 Levothyroxine Sodium (Synthroid) 100 mcg DAILYAC PO Last administered on at 10:05; Start 08/05/17 at 07:30; Stop 08/05/17 at 13:56; Status DC Pramipexole Dihydrochloride (miraPEX) 0.25 mg DAILY PO ; Start 08/05/17 at 09:00 ; Stop 08/05/17 at 09:00; Status DC Tramadol HCl (Ultram) 50 mg PRN Q4HRS PRN PO PAIN Last administered on at 20:24; Start 08/04/17 at 17:00 Calcium Carbonate/ Glycine (Oscal) 1,000 mg DAILY PO Last administered on 08:43; Start 08/05/17 at 09:00 Non-Formulary Medication (Iron Polysaccharides Complex (Novaferrum 50)) 50 mg DAILY PO ; Start 08/05/17 at 09:00; Stop 08/05/17 at 09:00; Status DC Multivitamins/ Calcium (Thera-M Plus) 1 tab DAILY PO Last administered on at 08:43; Start 08/05/17 at 09:00 Potassium Chloride (Klor-Con) 10 meq TID PO Last administered on 08/07/17 20: 21; Start 08/04/17 at 21:00 Pramipexole Dihydrochloride (miraPEX) 0.25 mg HS PO Last administered on 20:21; Start 08/04/17 at 21:00 Levothyroxine Sodium (Synthroid) 100 mcg DAILY06 PO Last administered on at 05:40; Start 08/06/17 at 06:00 Melatonin 3 mg PRN QHS PRN PO INSOMNIA; Start 08/05/17 at 18:15 Non-Formulary Medication (Alendronate Sodium (Fosamax)) 1 tab WEEKLY PO ; Start 08/12/17 at 09:00; Status UNV Alendronate Sodium (Fosamax) 35 mg WEEKLYAC PO ; Start 08/07/17 at 07:00; Status Cancel Alendronate Sodium (Fosamax) 70 mg WEEKLYAC PO Last administered on 08/07/17at 07:37; Start 08/07/17 at 07:00 Active Scripts Active Reported Fosamax (Alendronate Sodium) 70 Mg Tablet 1 Tab PO WEEKLY Tramadol Hcl (Tramadol HCl) 50 Mg Tablet 50 Mg PO PRN Q4HRS PRN Mirapex (Pramipexole Di-Hcl) 0.25 Mg Tablet 0.25 Mg PO DAILY Klor-Con 10 (Potassium Chloride) 10 Meq Tablet.er 10 Meq PO TID Multiple Vitamin (Multivitamin With Minerals) 1 Each Tablet 1 Each PO DAILY Levothyroxine Sodium 100 Mcg Tablet 100 Mcg PO DAILYAC Novaferrum 50 (Iron Polysaccharides Complex) 50 Mg Capsule 50 Mg PO DAILY Hydroxyzine Hcl 25 Mg Tablet 25 Mg PO PRN Q8HRS PRN Hydroxyzine Hcl 25 Mg Tablet 25 Mg PO DAILY Clonazepam 1 Mg Tablet 1 Mg PO PRN TID PRN Vitamin D3 (Cholecalciferol (Vitamin D3)) 1,000 Unit Tablet 2,000 Unit PO DAILY Calcium Carbonate 600 Mg Tablet 1,200 Mg PO DAILY Bupropion Hcl Sr (Bupropion Hcl) 150 Mg Tablet.er 150 Mg PO BID92 Allopurinol 100 Mg Tablet 100 Mg PO DAILY Tylenol (Acetaminophen) 325 Mg Tablet 650 Mg PO PRN Q4HRS PRN I have reviewed the current psychotropics carefully including drug interactions. Risk benefit ratio favors no change other than as noted in my dictated progress note. Diagnosis: Problems: (1) Anxiety disorder (2) Impulse control disorder (3) Psychosis, atypical (4) Major depressive disorder, recurrent episode MCKAY SHEIKH MD Aug 07, 2017 21:17
[2017-08-07] MEDS: MELATONIN 3 MG TABLET PO PRN (22:38)
[2017-08-07] MEDS: clonazePAM 1 MG TABLET PO PRN (22:43)
[2017-08-08] MEDS: traMADol 50 MG TABLET PO PRN ×5 (00:10→21:53)
--- NOTE | 2017-08-08 04:40 | PN ---
DATE: 08/06/2017 PSYCHIATRIC PROGRESS NOTE This is a late entry of 08/06/2017, covers elements not covered in my initial note of 08/06/2017. I met with the patient in the evening of 08/06/2017. I met with her in her room at some length. She has had a good day. She had several phone calls. Medical record release has been sent to [facility]. I processed her past history and treatment at [facility] and she minimizes most of the problems, stating they were just trying to workup her headaches, nothing psychiatric. Limited insight in this respect. REVIEW OF SYSTEMS: No CV, , pulmonary, eye, ENT system symptoms on review. MENTAL STATUS EXAM: Reasonably oriented. Speech is coherent at times, somewhat pressured. Abstraction fair, computation impaired, language function intact, attention span short. Mood and affect remains somewhat labile at times. LABORATORY DATA: Reviewed. IMPRESSION: Probable bipolar 1 disorder, mixed; anxiety disorder, unspecified; delirium, unspecified, seems to be clearing up. PLAN: Continue psychotropics mentioned in my initial note, Wellbutrin along with Atarax scheduled and p.r.n., Klonopin is 1 mg t.i.d. Psychological testing with ____ to clarify diagnosis, possibility of borderline personality disorder versus bipolar disorder; anxiety disorder in addition to the delirium though the latter seems to have resolved at this time. I would like to ultimately reduce her Klonopin and if bipolar diagnosis supported on psychological testing, consider adding a mood stabilizer. I discussed her multiple marriages and she minimized this, laughed it off and said they were all over controlling husbands and that is the reason she changed from one to the other. MAN Dheeraj SHEIKH MD DR: CAMI/nery JOB#: [id number] / [id number]
[2017-08-08] MEDS: LEVOTHYROXINE 100 MCG TABLET PO SCH (05:01)
[2017-08-08 08:14] VITALS: BP 142/86
[2017-08-08] MEDS: POTASSIUM CHLORIDE 10 MEQ TABLET.ER. PO SCH ×3 (08:28→20:33)
[2017-08-08] MEDS: ALLOPURINOL 100 MG TABLET. PO SCH (08:28)
[2017-08-08] MEDS: hydrOXYzine HCL 25 MG TABLET PO SCH (08:28)
[2017-08-08] MEDS: MULTIVITAMIN with MINERAL TABLET. PO SCH (08:28)
[2017-08-08] MEDS: CALCIUM CARBONATE 500 MG TABLET PO SCH (08:29)
[2017-08-08] MEDS: buPROPion SR 150 MG TABLET.SA PO SCH ×2 (08:29→15:32)
[2017-08-08] MEDS: CHOLECALCIFEROL (VITAMIN D3) 1,000 UNIT TABLET PO SCH (08:29)
[2017-08-08] MEDS: ACETAMINOPHEN 325 MG TABLET PO PRN ×2 (08:30→21:52)
[2017-08-08 15:52] VITALS: BP 144/74
[2017-08-08] MEDS: PRAMIPEXOLE 0.25 MG TABLET. PO SCH (20:33)
[2017-08-08] MEDS: oxyCODONE ER 10 MG TAB.ER.12H PO SCH ×2 (20:36→21:00)
--- NOTE | 2017-08-08 21:05 | PDOC ---
Exam Note: Niranjan Note: Please also refer to the separate dictated note~for this date of service dictated separately.~Patient seen individually. Discussed the patient with Nursing staff reviewed the chart.~Reviewed interim history and current functioning. Reviewed vital signs,~Labs/ Radiology~and current medications noted below. Continue current treatment with the changes noted in the dictated addendum note Assessment: Vital Signs: Vital Signs Date Time Temp Pulse Resp B/P (MAP) Pulse Ox O2 Delivery O2 Flow Rate FiO2 08/08/17 20:36 Room Air 08/08/17 18:10 100 08/08/17 15:52 98.4 92 16 144/74 (97) I&O Intake and Output 08/08/17 07:00 Intake Total 1320 ml Balance 1320 ml Intake Oral 1320 ml # Voids 2 Current Medications: Meds: Current Medications Multi-Ingredient Ointment (Analgesic [place]) 1 alissa PRN QID PRN TP MUSCLE PAIN; Start 08/04/17 at 17:00 Al Hydroxide/Mg Hydroxide (Mylanta Plus Xs) 15 ml PRN AFTMEALHC PRN PO DYSPEPSIA; Start 08/04/17 at 17:00 Magnesium Hydroxide (Milk Of Magnesia) 2,400 mg PRN QHS PRN PO CONSTIPATION; Start 08/04/17 at 17:00 Nicotine (Nicoderm Cq 14mg) 1 patch DAILY TD ; Start 08/05/17 at 09:00; Stop at 09:00; Status DC Acetaminophen (Tylenol) 650 mg PRN Q4HRS PRN PO PAIN / TEMP Last administered on 08/08/17at 08:30; Start 08/04/17 at 17:00 Allopurinol (Zyloprim) 100 mg DAILY PO Last administered on 08/08/17at 08:28; Start 08/05/17 at 09:00 Bupropion HCl (Wellbutrin Sr) 150 mg BID92 PO Last administered on 08/08/17at 15 :32; Start 08/05/17 at 09:00 Vitamin D (Vitamin D3) 2,000 unit DAILY PO Last administered on 08/08/17at 08:29 ; Start 08/05/17 at 09:00 Clonazepam (KlonoPIN) 1 mg PRN TID PRN PO ANXIETY / AGITATION Last administered on 08/07/17at 22:43; Start 08/04/17 at 17:00 Hydroxyzine HCl (Atarax) 25 mg DAILY PO Last administered on 08/08/17at 08:28; Start 08/05/17 at 09:00 Hydroxyzine HCl (Atarax) 25 mg PRN Q8HRS PRN PO ANXIETY; Start 08/04/17 at 17: 00 Levothyroxine Sodium (Synthroid) 100 mcg DAILYAC PO Last administered on at 10:05; Start 08/05/17 at 07:30; Stop 08/05/17 at 13:56; Status DC Pramipexole Dihydrochloride (miraPEX) 0.25 mg DAILY PO ; Start 08/05/17 at 09:00 ; Stop 08/05/17 at 09:00; Status DC Tramadol HCl (Ultram) 50 mg PRN Q4HRS PRN PO PAIN Last administered on at 16:25; Start 08/04/17 at 17:00 Calcium Carbonate/ Glycine (Oscal) 1,000 mg DAILY PO Last administered on at 08:29; Start 08/05/17 at 09:00 Non-Formulary Medication (Iron Polysaccharides Complex (Novaferrum 50)) 50 mg DAILY PO ; Start 08/05/17 at 09:00; Stop 08/05/17 at 09:00; Status DC Multivitamins/ Calcium (Thera-M Plus) 1 tab DAILY PO Last administered on at 08:28; Start 08/05/17 at 09:00 Potassium Chloride (Klor-Con) 10 meq TID PO Last administered on 08/08/17at 20: 33; Start 08/04/17 at 21:00 Pramipexole Dihydrochloride (miraPEX) 0.25 mg HS PO Last administered on at 20:33; Start 08/04/17 at 21:00 Levothyroxine Sodium (Synthroid) 100 mcg DAILY06 PO Last administered on at 05:01; Start 08/06/17 at 06:00 Melatonin 3 mg PRN QHS PRN PO INSOMNIA Last administered on 08/07/17at 22:38; Start 08/05/17 at 18:15 Non-Formulary Medication (Alendronate Sodium (Fosamax)) 1 tab WEEKLY PO ; Start 08/12/17 at 09:00; Status UNV Alendronate Sodium (Fosamax) 35 mg WEEKLYAC PO ; Start 08/07/17 at 07:00; Status Cancel Alendronate Sodium (Fosamax) 70 mg WEEKLYAC PO Last administered on 08/07/17at 07:37; Start 08/07/17 at 07:00 Quetiapine Fumarate (SEROquel) 12.5 mg BID@0900,1300 PO ; Start 08/09/17 at 09: 00 Oxycodone HCl (OxyCONTIN) 10 mg Q12HR PO Last administered on 08/08/17at 20:36; Start 08/08/17 at 21:00 Active Scripts Active Reported Fosamax (Alendronate Sodium) 70 Mg Tablet 1 Tab PO WEEKLY Tramadol Hcl (Tramadol HCl) 50 Mg Tablet 50 Mg PO PRN Q4HRS PRN Mirapex (Pramipexole Di-Hcl) 0.25 Mg Tablet 0.25 Mg PO DAILY Klor-Con 10 (Potassium Chloride) 10 Meq Tablet.er 10 Meq PO TID Multiple Vitamin (Multivitamin With Minerals) 1 Each Tablet 1 Each PO DAILY Levothyroxine Sodium 100 Mcg Tablet 100 Mcg PO DAILYAC Novaferrum 50 (Iron Polysaccharides Complex) 50 Mg Capsule 50 Mg PO DAILY Hydroxyzine Hcl 25 Mg Tablet 25 Mg PO PRN Q8HRS PRN Hydroxyzine Hcl 25 Mg Tablet 25 Mg PO DAILY Clonazepam 1 Mg Tablet 1 Mg PO PRN TID PRN Vitamin D3 (Cholecalciferol (Vitamin D3)) 1,000 Unit Tablet 2,000 Unit PO DAILY Calcium Carbonate 600 Mg Tablet 1,200 Mg PO DAILY Bupropion Hcl Sr (Bupropion Hcl) 150 Mg Tablet.er 150 Mg PO BID92 Allopurinol 100 Mg Tablet 100 Mg PO DAILY Tylenol (Acetaminophen) 325 Mg Tablet 650 Mg PO PRN Q4HRS PRN I have reviewed the current psychotropics carefully including drug interactions. Risk benefit ratio favors no change other than as noted in my dictated progress note. Diagnosis: Problems: (1) Anxiety disorder (2) Impulse control disorder (3) Psychosis, atypical (4) Major depressive disorder, recurrent episode MCKAY SHEIKH MD Aug 08, 2017 21:05
[2017-08-08] MEDS: MELATONIN 3 MG TABLET PO PRN (21:52)
--- NOTE | 2017-08-08 23:04 | PN ---
DATE: 08/07/2017 This late entry of 08/07/2017 covers elements not covered in my initial note of 08/07/2017. SUBJECTIVE: I met with the patient individually at length in the evening of 08/07/2017. We discussed a past history and she was suicidal about 10 years ago, cut her wrists, was using alcohol. Minimizes this. Reluctantly admits to some mood swings, but minimizes this as well. REVIEW OF SYSTEMS: No CV, , pulmonary, eye, ENT system symptoms on review. MENTAL STATUS EXAM: Oriented to herself and situation. Speech coherent, less pressured. Abstraction fair, computation impaired, language function intact. Mood and affect still somewhat anxious, labile. LABORATORY DATA: Reviewed. IMPRESSION: Probable bipolar 1 disorder, mixed with psychotic features, borderline personality disorder. PLAN: Continue psychotropics mentioned in my initial note. MAN Dheeraj SHEIKH MD DR: CAMI/nery JOB#: [id number] / [id number]
[2017-08-09] MEDS: LEVOTHYROXINE 100 MCG TABLET PO SCH (05:18)
[2017-08-09] MEDS: hydrOXYzine HCL 25 MG TABLET PO PRN ×2 (05:19→21:03)
[2017-08-09 06:25] VITALS: BP 158/92
[2017-08-09] MEDS: POTASSIUM CHLORIDE 10 MEQ TABLET.ER. PO SCH ×3 (08:20→20:49)
[2017-08-09] MEDS: ALLOPURINOL 100 MG TABLET. PO SCH (08:20)
[2017-08-09] MEDS: CHOLECALCIFEROL (VITAMIN D3) 1,000 UNIT TABLET PO SCH (08:20)
[2017-08-09] MEDS: hydrOXYzine HCL 25 MG TABLET PO SCH (08:20)
[2017-08-09] MEDS: buPROPion SR 150 MG TABLET.SA PO SCH ×2 (08:20→13:56)
[2017-08-09] MEDS: CALCIUM CARBONATE 500 MG TABLET PO SCH (08:20)
[2017-08-09] MEDS: MULTIVITAMIN with MINERAL TABLET. PO SCH (08:21)
[2017-08-09] MEDS: traMADol 50 MG TABLET PO PRN ×3 (08:21→18:50)
[2017-08-09] MEDS: QUEtiapine 25 MG TABLET. PO SCH ×2 (08:22→13:56)
[2017-08-09] MEDS: oxyCODONE ER 10 MG TAB.ER.12H PO SCH (08:22)
[2017-08-09] MEDS ORDERED: DOCUSATE SODIUM 100 MG CAPSULE PO SCH (09:00)
[2017-08-09 16:31] VITALS: BP 145/86
[2017-08-09] MEDS: ACETAMINOPHEN 325 MG TABLET PO PRN (16:43)
[2017-08-09] MEDS: PRAMIPEXOLE 0.25 MG TABLET. PO SCH (20:49)
[2017-08-09] MEDS: clonazePAM 1 MG TABLET PO PRN (20:52)
[2017-08-09] MEDS: MELATONIN 3 MG TABLET PO PRN (20:52)
--- NOTE | 2017-08-09 21:24 | PDOC ---
Exam Note: Niranjan Note: Please also refer to the separate dictated note~for this date of service dictated separately.~Patient seen individually. Discussed the patient with Nursing staff reviewed the chart.~Reviewed interim history and current functioning. Reviewed vital signs,~Labs/ Radiology~and current medications noted below. Continue current treatment with the changes noted in the dictated addendum note Assessment: Vital Signs: Vital Signs Date Time Temp Pulse Resp B/P (MAP) Pulse Ox O2 Delivery O2 Flow Rate FiO2 08/09/17 18:50 94 08/09/17 16:31 98.4 87 18 145/86 (105) 08/08/17 23:00 Room Air I&O Intake and Output 08/09/17 07:00 Intake Total 360 ml Balance 360 ml Intake Oral 360 ml Current Medications: Meds: Current Medications Multi-Ingredient Ointment (Analgesic [place]) 1 alissa PRN QID PRN TP MUSCLE PAIN; Start 08/04/17 at 17:00 Al Hydroxide/Mg Hydroxide (Mylanta Plus Xs) 15 ml PRN AFTMEALHC PRN PO DYSPEPSIA; Start 08/04/17 at 17:00 Magnesium Hydroxide (Milk Of Magnesia) 2,400 mg PRN QHS PRN PO CONSTIPATION; Start 08/04/17 at 17:00 Nicotine (Nicoderm Cq 14mg) 1 patch DAILY TD ; Start 08/05/17 at 09:00; Stop at 09:00; Status DC Acetaminophen (Tylenol) 650 mg PRN Q4HRS PRN PO PAIN / TEMP Last administered on 08/09/17at 16:43; Start 08/04/17 at 17:00 Allopurinol (Zyloprim) 100 mg DAILY PO Last administered on 08/09/17at 08:20; Start 08/05/17 at 09:00 Bupropion HCl (Wellbutrin Sr) 150 mg BID92 PO Last administered on 08/09/17at 13 :56; Start 08/05/17 at 09:00 Vitamin D (Vitamin D3) 2,000 unit DAILY PO Last administered on 08/09/17at 08:20 ; Start 08/05/17 at 09:00 Clonazepam (KlonoPIN) 1 mg PRN TID PRN PO ANXIETY / AGITATION Last administered on 08/09/17at 20:52; Start 08/04/17 at 17:00 Hydroxyzine HCl (Atarax) 25 mg DAILY PO Last administered on 08/09/17 08:20; Start 08/05/17 at 09:00 Hydroxyzine HCl (Atarax) 25 mg PRN Q8HRS PRN PO ANXIETY Last administered on 21:03; Start 08/04/17 at 17:00 Levothyroxine Sodium (Synthroid) 100 mcg DAILYAC PO Last administered on 10:05; Start 08/05/17 at 07:30; Stop 08/05/17 at 13:56; Status DC Pramipexole Dihydrochloride (miraPEX) 0.25 mg DAILY PO ; Start 08/05/17 at 09:00 ; Stop 08/05/17 at 09:00; Status DC Tramadol HCl (Ultram) 50 mg PRN Q4HRS PRN PO PAIN Last administered on at 18:50; Start 08/04/17 at 17:00 Calcium Carbonate/ Glycine (Oscal) 1,000 mg DAILY PO Last administered on 08:20; Start 08/05/17 at 09:00 Non-Formulary Medication (Iron Polysaccharides Complex (Novaferrum 50)) 50 mg DAILY PO ; Start 08/05/17 at 09:00; Stop 08/05/17 at 09:00; Status DC Multivitamins/ Calcium (Thera-M Plus) 1 tab DAILY PO Last administered on 08:21; Start 08/05/17 at 09:00 Potassium Chloride (Klor-Con) 10 meq TID PO Last administered on 08/09/17 20: 49; Start 08/04/17 at 21:00 Pramipexole Dihydrochloride (miraPEX) 0.25 mg HS PO Last administered on 20:49; Start 08/04/17 at 21:00 Levothyroxine Sodium (Synthroid) 100 mcg DAILY06 PO Last administered on 05:18; Start 08/06/17 at 06:00 Melatonin 3 mg PRN QHS PRN PO INSOMNIA Last administered on 08/09/17 20:52; Start 08/05/17 at 18:15 Non-Formulary Medication (Alendronate Sodium (Fosamax)) 1 tab WEEKLY PO ; Start 08/12/17 at 09:00; Status UNV Alendronate Sodium (Fosamax) 35 mg WEEKLYAC PO ; Start 08/07/17 at 07:00; Status Cancel Alendronate Sodium (Fosamax) 70 mg WEEKLYAC PO Last administered on 08/07/17at 07:37; Start 08/07/17 at 07:00 Quetiapine Fumarate (SEROquel) 12.5 mg BID@0900,1300 PO Last administered on at 13:56; Start 08/09/17 at 09:00 Oxycodone HCl (OxyCONTIN) 10 mg Q12HR PO ; Start 08/08/17 at 21:00; Stop at 18:39; Status DC Docusate Sodium (Colace) 100 mg DAILY PO ; Start 08/09/17 at 09:00; Stop at 09:37; Status DC Docusate Sodium (Colace) 100 mg PRN DAILY PRN PO CONSTIPATION; Start 08/10/17 at 09:00 Active Scripts Active Reported Fosamax (Alendronate Sodium) 70 Mg Tablet 1 Tab PO WEEKLY Tramadol Hcl (Tramadol HCl) 50 Mg Tablet 50 Mg PO PRN Q4HRS PRN Mirapex (Pramipexole Di-Hcl) 0.25 Mg Tablet 0.25 Mg PO DAILY Klor-Con 10 (Potassium Chloride) 10 Meq Tablet.er 10 Meq PO TID Multiple Vitamin (Multivitamin With Minerals) 1 Each Tablet 1 Each PO DAILY Levothyroxine Sodium 100 Mcg Tablet 100 Mcg PO DAILYAC Novaferrum 50 (Iron Polysaccharides Complex) 50 Mg Capsule 50 Mg PO DAILY Hydroxyzine Hcl 25 Mg Tablet 25 Mg PO PRN Q8HRS PRN Hydroxyzine Hcl 25 Mg Tablet 25 Mg PO DAILY Clonazepam 1 Mg Tablet 1 Mg PO PRN TID PRN Vitamin D3 (Cholecalciferol (Vitamin D3)) 1,000 Unit Tablet 2,000 Unit PO DAILY Calcium Carbonate 600 Mg Tablet 1,200 Mg PO DAILY Bupropion Hcl Sr (Bupropion Hcl) 150 Mg Tablet.er 150 Mg PO BID92 Allopurinol 100 Mg Tablet 100 Mg PO DAILY Tylenol (Acetaminophen) 325 Mg Tablet 650 Mg PO PRN Q4HRS PRN I have reviewed the current psychotropics carefully including drug interactions. Risk benefit ratio favors no change other than as noted in my dictated progress note. Diagnosis: Problems: (1) Anxiety disorder (2) Impulse control disorder (3) Psychosis, atypical (4) Major depressive disorder, recurrent episode MCKAY SHEIKH MD Aug 09, 2017 21:24
--- NOTE | 2017-08-09 22:13 | PN ---
DATE: 08/08/2017 PSYCHIATRIC PROGRESS NOTE This is a late entry 08/08/2016, covers elements not covered in my initial note 08/08/2017. SUBJECTIVE: I met with the patient in the evening of 08/08/2017. The patient slept 6-1/4 hours previous evening. She has been anxious, restless, quite labile in her mood, per nursing report, refused to go to the dining room for lunch, was crying outside the door of the dining room, complaining to family "they drag people around into the shower." She received Klonopin previous evening to help her anxiety, mood lability. REVIEW OF SYSTEMS: No CV, , pulmonary, eye system symptoms on review, as I met with her individually. MENTAL STATUS EXAM: Reasonably oriented. Speech coherent, rapid at times. Abstraction fair, computation impaired, language function intact, attention span short. Mood and affect remain somewhat anxious, labile. LABORATORY DATA: Reviewed. IMPRESSION: Delirium, unspecified; history of borderline personality disorder, history of major depressive disorder, rule out bipolar 1 disorder, unspecified. PLAN: Psychological testing awaited with Dr. Marin. We will continue Wellbutrin for now together with Klonopin and Atarax p.r.n. Start Seroquel 12.5 mg 9 a.m., 1 p.m. Consider mood stabilizer depending on results of psychological testing and past records are awaited. MAN Dheeraj SHEIKH MD DR: CAMI/nery JOB#: [id number] / [id number]
[2017-08-10] MEDS: ACETAMINOPHEN 325 MG TABLET PO PRN ×3 (00:02→12:42)
[2017-08-10] MEDS: traMADol 50 MG TABLET PO PRN ×3 (00:02→20:28)
[2017-08-10] MEDS: LEVOTHYROXINE 100 MCG TABLET PO SCH (05:37)
[2017-08-10 05:51] VITALS: BP 135/72
[2017-08-10] MEDS: MULTIVITAMIN with MINERAL TABLET. PO SCH (08:33)
[2017-08-10] MEDS: QUEtiapine 25 MG TABLET. PO SCH ×3 (08:33→17:27)
[2017-08-10] MEDS: CALCIUM CARBONATE 500 MG TABLET PO SCH (08:34)
[2017-08-10] MEDS: buPROPion SR 150 MG TABLET.SA PO SCH ×2 (08:34→12:42)
[2017-08-10] MEDS: POTASSIUM CHLORIDE 10 MEQ TABLET.ER. PO SCH ×3 (08:34→20:28)
[2017-08-10] MEDS: CHOLECALCIFEROL (VITAMIN D3) 1,000 UNIT TABLET PO SCH (08:34)
[2017-08-10] MEDS: ALLOPURINOL 100 MG TABLET. PO SCH (08:34)
[2017-08-10] MEDS: hydrOXYzine HCL 25 MG TABLET PO SCH (08:34)
[2017-08-10] MEDS ORDERED: DOCUSATE SODIUM 100 MG CAPSULE PO PRN (09:00)
[2017-08-10 16:23] VITALS: BP 135/76
[2017-08-10] MEDS: PRAMIPEXOLE 0.25 MG TABLET. PO SCH (20:28)
[2017-08-10] MEDS: MELATONIN 3 MG TABLET PO PRN (20:28)
--- NOTE | 2017-08-10 21:10 | PDOC ---
Exam Note: Niranjan Note: Please also refer to the separate dictated note~for this date of service dictated separately.~Patient seen individually. Discussed the patient with Nursing staff reviewed the chart.~Reviewed interim history and current functioning. Reviewed vital signs,~Labs/ Radiology~and current medications noted below. Continue current treatment with the changes noted in the dictated addendum note Assessment: Vital Signs: Vital Signs Date Time Temp Pulse Resp B/P (MAP) Pulse Ox O2 Delivery O2 Flow Rate FiO2 08/10/17 20:28 Room Air 08/10/17 16:23 97.9 93 18 135/76 (95) 99 I&O Intake and Output 08/10/17 07:00 Intake Total 720 ml Balance 720 ml Intake Oral 720 ml Current Medications: Meds: Current Medications Multi-Ingredient Ointment (Analgesic [place]) 1 alissa PRN QID PRN TP MUSCLE PAIN; Start 08/04/17 at 17:00 Al Hydroxide/Mg Hydroxide (Mylanta Plus Xs) 15 ml PRN AFTMEALHC PRN PO DYSPEPSIA; Start 08/04/17 at 17:00 Magnesium Hydroxide (Milk Of Magnesia) 2,400 mg PRN QHS PRN PO CONSTIPATION; Start 08/04/17 at 17:00 Nicotine (Nicoderm Cq 14mg) 1 patch DAILY TD ; Start 08/05/17 at 09:00; Stop at 09:00; Status DC Acetaminophen (Tylenol) 650 mg PRN Q4HRS PRN PO PAIN / TEMP Last administered on 08/10/17at 12:42; Start 08/04/17 at 17:00 Allopurinol (Zyloprim) 100 mg DAILY PO Last administered on 08/10/17at 08:34; Start 08/05/17 at 09:00 Bupropion HCl (Wellbutrin Sr) 150 mg BID92 PO Last administered on 08/10/17at 12 :42; Start 08/05/17 at 09:00 Vitamin D (Vitamin D3) 2,000 unit DAILY PO Last administered on 08/10/17at 08:34 ; Start 08/05/17 at 09:00 Clonazepam (KlonoPIN) 1 mg PRN TID PRN PO ANXIETY / AGITATION Last administered on 08/09/17at 20:52; Start 08/04/17 at 17:00 Hydroxyzine HCl (Atarax) 25 mg DAILY PO Last administered on 08/10/17 08:34; Start 08/05/17 at 09:00 Hydroxyzine HCl (Atarax) 25 mg PRN Q8HRS PRN PO ANXIETY Last administered on 21:03; Start 08/04/17 at 17:00 Levothyroxine Sodium (Synthroid) 100 mcg DAILYAC PO Last administered on 10:05; Start 08/05/17 at 07:30; Stop 08/05/17 at 13:56; Status DC Pramipexole Dihydrochloride (miraPEX) 0.25 mg DAILY PO ; Start 08/05/17 at 09:00 ; Stop 08/05/17 at 09:00; Status DC Tramadol HCl (Ultram) 50 mg PRN Q4HRS PRN PO PAIN Last administered on 20:28; Start 08/04/17 at 17:00 Calcium Carbonate/ Glycine (Oscal) 1,000 mg DAILY PO Last administered on 08:34; Start 08/05/17 at 09:00 Non-Formulary Medication (Iron Polysaccharides Complex (Novaferrum 50)) 50 mg DAILY PO ; Start 08/05/17 at 09:00; Stop 08/05/17 at 09:00; Status DC Multivitamins/ Calcium (Thera-M Plus) 1 tab DAILY PO Last administered on 08:33; Start 08/05/17 at 09:00 Potassium Chloride (Klor-Con) 10 meq TID PO Last administered on 08/10/17 20: 28; Start 08/04/17 at 21:00 Pramipexole Dihydrochloride (miraPEX) 0.25 mg HS PO Last administered on 20:28; Start 08/04/17 at 21:00 Levothyroxine Sodium (Synthroid) 100 mcg DAILY06 PO Last administered on 05:37; Start 08/06/17 at 06:00 Melatonin 3 mg PRN QHS PRN PO INSOMNIA Last administered on 08/10/17 20:28; Start 08/05/17 at 18:15 Non-Formulary Medication (Alendronate Sodium (Fosamax)) 1 tab WEEKLY PO ; Start 08/12/17 at 09:00; Status UNV Alendronate Sodium (Fosamax) 35 mg WEEKLYAC PO ; Start 08/07/17 at 07:00; Status Cancel Alendronate Sodium (Fosamax) 70 mg WEEKLYAC PO Last administered on 08/07/17at 07:37; Start 08/07/17 at 07:00 Quetiapine Fumarate (SEROquel) 12.5 mg BID@0900,1300 PO Last administered on at 08:33; Start 08/09/17 at 09:00; Stop 08/10/17 at 10:28; Status DC Oxycodone HCl (OxyCONTIN) 10 mg Q12HR PO ; Start 08/08/17 at 21:00; Stop at 18:39; Status DC Docusate Sodium (Colace) 100 mg DAILY PO ; Start 08/09/17 at 09:00; Stop at 09:37; Status DC Docusate Sodium (Colace) 100 mg PRN DAILY PRN PO CONSTIPATION; Start 08/10/17 at 09:00 Quetiapine Fumarate (SEROquel) 12.5 mg TID@0900,1300,1700 PO Last administered on 08/10/17at 17:27; Start 08/10/17 at 13:00 Active Scripts Active Reported Fosamax (Alendronate Sodium) 70 Mg Tablet 1 Tab PO WEEKLY Tramadol Hcl (Tramadol HCl) 50 Mg Tablet 50 Mg PO PRN Q4HRS PRN Mirapex (Pramipexole Di-Hcl) 0.25 Mg Tablet 0.25 Mg PO DAILY Klor-Con 10 (Potassium Chloride) 10 Meq Tablet.er 10 Meq PO TID Multiple Vitamin (Multivitamin With Minerals) 1 Each Tablet 1 Each PO DAILY Levothyroxine Sodium 100 Mcg Tablet 100 Mcg PO DAILYAC Novaferrum 50 (Iron Polysaccharides Complex) 50 Mg Capsule 50 Mg PO DAILY Hydroxyzine Hcl 25 Mg Tablet 25 Mg PO PRN Q8HRS PRN Hydroxyzine Hcl 25 Mg Tablet 25 Mg PO DAILY Clonazepam 1 Mg Tablet 1 Mg PO PRN TID PRN Vitamin D3 (Cholecalciferol (Vitamin D3)) 1,000 Unit Tablet 2,000 Unit PO DAILY Calcium Carbonate 600 Mg Tablet 1,200 Mg PO DAILY Bupropion Hcl Sr (Bupropion Hcl) 150 Mg Tablet.er 150 Mg PO BID92 Allopurinol 100 Mg Tablet 100 Mg PO DAILY Tylenol (Acetaminophen) 325 Mg Tablet 650 Mg PO PRN Q4HRS PRN I have reviewed the current psychotropics carefully including drug interactions. Risk benefit ratio favors no change other than as noted in my dictated progress note. Diagnosis: Problems: (1) Anxiety disorder (2) Impulse control disorder (3) Psychosis, atypical (4) Major depressive disorder, recurrent episode MCKAY SHEIKH MD Aug 10, 2017 21:09
[2017-08-11] MEDS ORDERED: DOCU-109 PO (00:52)
[2017-08-11] MEDS ORDERED: MAG30ORA2 PO (00:53)
[2017-08-11] MEDS ORDERED: MAGN2400 PO (00:54)
[2017-08-11] MEDS ORDERED: MELA3TAB2 PO (00:55)
[2017-08-11] MEDS ORDERED: METH29OI TP (00:56)
[2017-08-11] MEDS ORDERED: QUET25TA5 PO (00:58)
[2017-08-11] MEDS: ACETAMINOPHEN 325 MG TABLET PO PRN ×2 (01:09→06:30)
[2017-08-11] MEDS: traMADol 50 MG TABLET PO PRN (01:09)
[2017-08-11] MEDS ORDERED: MAGN400O7 PO (01:10)
[2017-08-11 06:03] VITALS: BP 157/100
[2017-08-11] MEDS: LEVOTHYROXINE 100 MCG TABLET PO SCH (06:30)
[2017-08-11] MEDS: MULTIVITAMIN with MINERAL TABLET. PO SCH (09:23)
[2017-08-11] MEDS: buPROPion SR 150 MG TABLET.SA PO SCH (09:24)
[2017-08-11] MEDS: CALCIUM CARBONATE 500 MG TABLET PO SCH (09:24)
[2017-08-11] MEDS: CHOLECALCIFEROL (VITAMIN D3) 1,000 UNIT TABLET PO SCH (09:24)
[2017-08-11] MEDS: QUEtiapine 25 MG TABLET. PO SCH ×2 (09:24→12:25)
[2017-08-11] MEDS: ALLOPURINOL 100 MG TABLET. PO SCH (09:24)
[2017-08-11] MEDS: hydrOXYzine HCL 25 MG TABLET PO SCH (09:24)
[2017-08-11] MEDS: POTASSIUM CHLORIDE 10 MEQ TABLET.ER. PO SCH (09:24)
--- NOTE | 2017-08-11 20:13 | PN ---
DATE: 08/09/2017 PSYCHIATRIC PROGRESS NOTE This is a late entry 08/09/2017 covers elements not covered in my initial note 08/09/2017. SUBJECTIVE: I met with the patient in the evening of 08/09/2017. Per nursing report, the patient remains somewhat anxious, needy, labile at times, minimizes this. Tearful at times, compliant with medications. REVIEW OF SYSTEMS: No CV, , pulmonary, eye, ENT system symptoms on review. Reliability fair. MENTAL STATUS EXAM: Reasonably oriented. Speech coherent, abstraction fair, computation impaired, language function intact, attention span short. Mood and affect somewhat anxious, labile. Psychological testing with Dr. Marin is awaited. LABORATORY DATA: Reviewed. IMPRESSION: Probable bipolar 1 disorder, unspecified; anxiety disorder, unspecified; history of major depressive disorder, personality disorder, questionably borderline. PLAN: Continue psychotropics mentioned in my initial note for now. MAN Dheeraj SHEIKH MD DR: CAMI/nery JOB#: [id number] / [id number]
--- NOTE | 2017-08-11 20:45 | PDOC ---
Exam Note: Niranjan Note: Please also refer to the separate dictated note~for this date of service dictated separately.~Patient seen individually. Discussed the patient with Nursing staff reviewed the chart.~Reviewed interim history and current functioning. Reviewed vital signs,~Labs/ Radiology~and current medications noted below. Continue current treatment with the changes noted in the dictated addendum note Assessment: Vital Signs: Vital Signs Date Time Temp Pulse Resp B/P (MAP) Pulse Ox O2 Delivery O2 Flow Rate FiO2 08/11/17 06:03 98.6 94 20 157/100 (119) 98 08/11/17 02:57 Room Air I&O Intake and Output 08/11/17 07:00 Intake Total 960 ml Balance 960 ml Intake Oral 960 ml # Bowel Movements 2 Current Medications: Meds: Current Medications Multi-Ingredient Ointment (Analgesic [place]) 1 tanya PRN QID PRN TP MUSCLE PAIN; Start 08/04/17 at 17:00; Stop 08/11/17 at 14:36; Status DC Al Hydroxide/Mg Hydroxide (Mylanta Plus Xs) 15 ml PRN AFTMEALHC PRN PO DYSPEPSIA; Start 08/04/17 at 17:00; Stop 08/11/17 at 14:36; Status DC Magnesium Hydroxide (Milk Of Magnesia) 2,400 mg PRN QHS PRN PO CONSTIPATION; Start 08/04/17 at 17:00; Stop 08/11/17 at 14:36; Status DC Nicotine (Nicoderm Cq 14mg) 1 patch DAILY TD ; Start 08/05/17 at 09:00; Stop at 09:00; Status DC Acetaminophen (Tylenol) 650 mg PRN Q4HRS PRN PO PAIN / TEMP Last administered on 08/11/17at 06:30; Start 08/04/17 at 17:00; Stop 08/11/17 at 14:36; Status DC Allopurinol (Zyloprim) 100 mg DAILY PO Last administered on 08/11/17at 09:24; Start 08/05/17 at 09:00; Stop 08/11/17 at 14:36; Status DC Bupropion HCl (Wellbutrin Sr) 150 mg BID92 PO Last administered on 08/11/17at 09 :24; Start 08/05/17 at 09:00; Stop 08/11/17 at 14:36; Status DC Vitamin D (Vitamin D3) 2,000 unit DAILY PO Last administered on 08/11/17at 09:24 ; Start 08/05/17 at 09:00; Stop 08/11/17 at 14:36; Status DC Clonazepam (KlonoPIN) 1 mg PRN TID PRN PO ANXIETY / AGITATION Last administered on 08/09/17at 20:52; Start 08/04/17 at 17:00; Stop 08/11/17 at 14:36 ; Status DC Hydroxyzine HCl (Atarax) 25 mg DAILY PO Last administered on 08/11/17at 09:24; Start 08/05/17 at 09:00; Stop 08/11/17 at 14:36; Status DC Hydroxyzine HCl (Atarax) 25 mg PRN Q8HRS PRN PO ANXIETY Last administered on at 21:03; Start 08/04/17 at 17:00; Stop 08/11/17 at 14:36; Status DC Levothyroxine Sodium (Synthroid) 100 mcg DAILYAC PO Last administered on at 10:05; Start 08/05/17 at 07:30; Stop 08/05/17 at 13:56; Status DC Pramipexole Dihydrochloride (miraPEX) 0.25 mg DAILY PO ; Start 08/05/17 at 09:00 ; Stop 08/05/17 at 09:00; Status DC Tramadol HCl (Ultram) 50 mg PRN Q4HRS PRN PO PAIN Last administered on at 01:09; Start 08/04/17 at 17:00; Stop 08/11/17 at 14:36; Status DC Calcium Carbonate/ Glycine (Oscal) 1,000 mg DAILY PO Last administered on at 09:24; Start 08/05/17 at 09:00; Stop 08/11/17 at 14:36; Status DC Non-Formulary Medication (Iron Polysaccharides Complex (Novaferrum 50)) 50 mg DAILY PO ; Start 08/05/17 at 09:00; Stop 08/05/17 at 09:00; Status DC Multivitamins/ Calcium (Thera-M Plus) 1 tab DAILY PO Last administered on at 09:23; Start 08/05/17 at 09:00; Stop 08/11/17 at 14:36; Status DC Potassium Chloride (Klor-Con) 10 meq TID PO Last administered on 08/11/17at 09: 24; Start 08/04/17 at 21:00; Stop 08/11/17 at 14:36; Status DC Pramipexole Dihydrochloride (miraPEX) 0.25 mg HS PO Last administered on at 20:28; Start 08/04/17 at 21:00; Stop 08/11/17 at 14:36; Status DC Levothyroxine Sodium (Synthroid) 100 mcg DAILY06 PO Last administered on at 06:30; Start 08/06/17 at 06:00; Stop 08/11/17 at 14:36; Status DC Melatonin 3 mg PRN QHS PRN PO INSOMNIA Last administered on 08/10/17at 20:28; Start 08/05/17 at 18:15; Stop 08/11/17 at 14:36; Status DC Non-Formulary Medication (Alendronate Sodium (Fosamax)) 1 tab WEEKLY PO ; Start 08/12/17 at 09:00; Status UNV Alendronate Sodium (Fosamax) 35 mg WEEKLYAC PO ; Start 08/07/17 at 07:00; Status Cancel Alendronate Sodium (Fosamax) 70 mg WEEKLYAC PO Last administered on 08/07/17at 07:37; Start 08/07/17 at 07:00; Stop 08/11/17 at 14:36; Status DC Quetiapine Fumarate (SEROquel) 12.5 mg BID@0900,1300 PO Last administered on at 08:33; Start 08/09/17 at 09:00; Stop 08/10/17 at 10:28; Status DC Oxycodone HCl (OxyCONTIN) 10 mg Q12HR PO ; Start 08/08/17 at 21:00; Stop at 18:39; Status DC Docusate Sodium (Colace) 100 mg DAILY PO ; Start 08/09/17 at 09:00; Stop at 09:37; Status DC Docusate Sodium (Colace) 100 mg PRN DAILY PRN PO CONSTIPATION; Start 08/10/17 at 09:00; Stop 08/11/17 at 14:36; Status DC Quetiapine Fumarate (SEROquel) 12.5 mg TID@0900,1300,1700 PO Last administered on 08/11/17at 12:25; Start 08/10/17 at 13:00; Stop 08/11/17 at 14:36; Status DC Active Scripts Active Reported Milk Of Magnesia (Magnesium Hydroxide) 400 Mg/5 Ml Oral.susp 2,400 Mg PO PRN QHS PRN Seroquel (Quetiapine Fumarate) 25 Mg Tablet 12.5 Mg PO TID@0900,1300,1700 Analgesic [place] (Methyl Salicylate/Menthol) 28 Gm Oint...g. 1 Tanya TP PRN QID PRN Melatonin 3 Mg Tablet 3 Mg PO PRN QHS PRN Mag-Al Plus Xs Suspension (Mag Hydrox/Al Hydrox/Simeth) 30 Ml Oral.susp 15 Ml PO PRN AFTMEALHC PRN Colace (Docusate Sodium) 100 Mg Capsule 100 Mg PO PRN DAILY PRN Fosamax (Alendronate Sodium) 70 Mg Tablet 70 Mg PO WEEKLYAC Tramadol Hcl (Tramadol HCl) 50 Mg Tablet 50 Mg PO PRN Q4HRS PRN Mirapex (Pramipexole Di-Hcl) 0.25 Mg Tablet 0.25 Mg PO QHS Klor-Con 10 (Potassium Chloride) 10 Meq Tablet.er 10 Meq PO TID Multiple Vitamin (Multivitamin With Minerals) 1 Each Tablet 1 Tab PO DAILY Levothyroxine Sodium 100 Mcg Tablet 100 Mcg PO DAILY06 Hydroxyzine Hcl 25 Mg Tablet 25 Mg PO PRN Q8HRS PRN Hydroxyzine Hcl 25 Mg Tablet 25 Mg PO DAILY Clonazepam 1 Mg Tablet 1 Mg PO PRN TID PRN Vitamin D3 (Cholecalciferol (Vitamin D3)) 1,000 Unit Tablet 2,000 Unit PO DAILY Calcium Carbonate 600 Mg Tablet 1,200 Mg PO DAILY Bupropion Hcl Sr (Bupropion Hcl) 150 Mg Tablet.er 150 Mg PO BID92 Allopurinol 100 Mg Tablet 100 Mg PO DAILY Tylenol (Acetaminophen) 325 Mg Tablet 650 Mg PO PRN Q4HRS PRN MDD 4000mg I have reviewed the current psychotropics carefully including drug interactions. Risk benefit ratio favors no change other than as noted in my dictated progress note. Diagnosis: Problems: (1) Anxiety disorder (2) Impulse control disorder (3) Psychosis, atypical (4) Major depressive disorder, recurrent episode MCKAY SHEIKH MD Aug 11, 2017 20:44
--- NOTE | 2017-08-11 21:29 | PN ---
DATE: 08/10/2017 PSYCHIATRIC PROGRESS NOTE This is a late entry 08/10/2017 covers elements not covered in my initial note 08/10/2017. SUBJECTIVE: I met with the patient individually in the evening and in the morning during treatment team meeting. In the morning treatment team meeting, the patient's daughter, Mee also attended. Mee lives in [place], [place] and is the patient's DPOA. I have talked to her in the past. We are still awaiting results of psychological testing from Dr. Marin. The patient is less somatic, anxious, ambulating with a walker. Discussed her past history. History is suggestive of bipolar 1 disorder, unspecified versus borderline personality disorder, anxiety disorder, history of major depressive disorder. REVIEW OF SYSTEMS: No CV, , pulmonary, eye system symptoms on review. MENTAL STATUS EXAM: Reasonably oriented. Speech coherent, quite labile, anxious, tearful at times during the visit. Abstraction fair, computation reasonable, language function intact. Mood and affect somewhat labile. LABORATORY DATA: Reviewed. IMPRESSION: Bipolar 1 disorder, unspecified; anxiety disorder, unspecified. PLAN: Continue psychotropics mentioned in my initial note, increase Seroquel from 12.5 mg twice a day to 3 times a day. MAN Dheeraj SHEIKH MD DR: CAMI/nery JOB#: [id number] / [id number]
[2017-08-12] MEDS ORDERED: NON FORMULARY ITEM (Alendronate Sodium (Fosamax) 1 TAB) PO SCH (09:00)
--- NOTE | 2017-08-13 09:35 | DS ---
DATE OF DISCHARGE: 08/11/2017 DISCHARGE SUMMARY/PSYCHIATRIC PROGRESS NOTE This late entry, 08/11/2017, covers elements not covered in my initial note of 08/11/2017. REASON FOR ADMISSION: Please refer to the admission history for details. Briefly, the patient is a 71-year-old female referred to us from [facility] where she was hospitalized for medical stabilization consequent to new onset of delirium, status post recent laminectomy at [facility]. There is a question whether some of the delirium was status post anesthesia but it did appear after she returned home post surgery. She was found to be medically stable. Mood lability, agitation, depression, symptoms of delirium persisted and she was referred for inpatient psychiatric stabilization. SIGNIFICANT FINDINGS AND CLINICAL COURSE: Following admission, the patient was seen daily individually by myself, followed medically per Dr. Blackwood/Dr Figueroa. I gathered further background and history from the patient's daughter, which indicated she had a long psychiatric history including treatment at the [facility] with a diagnosis of borderline personality disorder. Further history was suggestive of bipolar disorder versus cyclothymic disorder. She remained intermittently psychotic, quite labile, anxious. Adjustments were made in her psychotropics. She seemed to respond and do a little better on a combination of Wellbutrin SR 150 mg twice a day, Atarax 25 mg daily and 25 mg q.8 hours p.r.n. anxiety, Klonopin 1 mg t.i.d. p.r.n. anxiety, Seroquel 12.5 mg 3 times a day. Psychological testing was completed by Dr. Marin and the reader is referred to that report for details as it was not available to me at the time of this dictation. The delirium appeared to resolve. Mood lability was much improved even though it persisted. There was a definite question of cyclothymia versus bipolar disorder and this was deferred to outpatient psychiatric treatment. REVIEW OF SYSTEMS: Prior to discharge on 08/11/2017, no CV, , pulmonary, eye, ENT system symptoms on review. MENTAL STATUS EXAM: The patient is well oriented. Speech is coherent, somewhat pressured, partly due to anxiety. Abstraction fair, computation reasonable, language function intact, attention span short. Mood and affect lability improved. CONDITION AT DISCHARGE: Improved. FINAL DIAGNOSES: Major depressive disorder, recurrent versus probable bipolar 1 disorder, mixed with psychotic features, in partial remission; cyclothymia; probable borderline personality disorder; anxiety disorder, unspecified; delirium due to general medical condition, resolved. Rest unchanged from admission. DISCHARGE MEDICATIONS: Please refer to the EMRAD. DISCHARGE INSTRUCTIONS: Outpatient psychiatric and medical followup as arranged prior to discharge. Time for discharge day management greater than 30 minutes. MAN Dheeraj SHEIKH MD DR: CAMI/nery JOB#: [id number] / [id number]
== END 2017-08-11 12:15 | disposition home or self-care (01) | DRG 885 ==
LOC: GEROPSY 16:35
PROVIDERS: ADMIT Psychiatry & Neurology Psychiatry; ATTEND Psychiatry & Neurology Psychiatry
DX: F31.64 Bipolar disorder, current episode mixed, severe, with psychotic features (principal); F05 Delirium due to known physiological condition; F34.0 Cyclothymic disorder; F60.3 Borderline personality disorder; E03.9 Hypothyroidism, unspecified; E53.8 Deficiency of other specified B group vitamins; F41.9 Anxiety disorder, unspecified; F63.9 Impulse disorder, unspecified; G47.00 Insomnia, unspecified; F90.9 Attention-deficit hyperactivity disorder, unspecified type; G25.81 Restless legs syndrome; M10.9 Gout, unspecified; M81.0 Age-related osteoporosis without current pathological fracture; Z96.652 Presence of left artificial knee joint; Z91.5 Personal history of self-harm
CPT/HCPCS: 36415; 80053; 80061; 81001; 82306; 82607; 83036; 83540; 83550; 83735; 84436; 84443; 84480; 85025; 86593; 87086; 87186; 93005; 97110; 97530; 97535